=== PATIENT | female | born 2000 | race Caucasian/White ===

== ENCOUNTER 2022-10-13 08:31 | Emergency (ER) | payer BC ==
[2022-10-13] MEDS: Alum Hydroxide/Mag Hydroxide 30 ML, Lidocaine 2% 15 ML PO ONE ×2 (09:05)
[2022-10-13] MEDS: Ketorolac 30 MG/ML SDV IVPUSH ONE (09:20)
== END 2022-10-13 10:10 | disposition home or self-care (01) ==
LOC: FB.ED 08:31
DX: M94.0 Chondrocostal junction syndrome [Tietze] (principal); K21.00 Gastro-esophageal reflux disease with esophagitis, without bleeding
CPT/HCPCS: 93005; 96374; 99284-25; A9270-GY; J1885